=== PATIENT | male | born 1935 | race Caucasian/White ===

== ENCOUNTER 2016-11-07 12:25 | Emergency (ER) | payer MEDICARE, OTHER ==
[~2016-11-07] VITALS: Ht 172.7 cm; Wt 92.3 kg
[~2016-11-07 12:25] MED LIST: AMLO5TAB96 PO; APIX5TAB PO; ASPI81TA82 PO; ATOR10 PO; ENAL20TA81 PO; GLIM1 PO; ISOS30TA17 PO; MAXZ25 PO; PIOG30 PO; POTA-267 PO; SITA50 PO; VITA-13 PO
[2016-11-07 12:42] VITALS: BP 146/73; PULSE 62; RESP 18; TEMP 98.2; O2SAT 96
[2016-11-07] MEDS ORDERED: TRIA37.5 PO (13:25)
[2016-11-07] MEDS ORDERED: ATOR20TA15 PO (13:25)
[2016-11-07] MEDS ORDERED: POTA-243 PO (13:25)
[2016-11-07] MEDS ORDERED: APIX5TAB PO (13:25)
[2016-11-07] MEDS ORDERED: PIOG30TA4 PO (13:25)
[2016-11-07] MEDS ORDERED: ENAL20TA PO (13:25)
[2016-11-07] MEDS ORDERED: ASPI81CH CHEW (13:25)
[2016-11-07] MEDS ORDERED: SITA50 PO (13:25)
[2016-11-07] MEDS ORDERED: GLIM1TAB PO (13:25)
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
--- NOTE | 2016-11-07 14:15 | RADHPO ---
EXAM DATE/TIME: 11/07/2016 13:56 [facility] COMPARISON: No previous studies available for comparison. INDICATIONS : Right hip pain; fell 4 days ago. MEDICAL HISTORY : None. SURGICAL HISTORY : Inguinal hernia repair. ENCOUNTER: Initial ACUITY: 4 - 6 days PAIN SCORE: 5/10 LOCATION: Right hip FINDINGS: No definite fractures, or dislocations are identified. No definite lytic or sclerotic lesion is seen . The joint space is well maintained. Chronic atherosclerotic calcifications are seen involving the visualized arteries. CONCLUSION: No definite fracture is seen for techniqueKenny Acevedo MD on November 07, 2016 at 14:13 Board Certified Radiologist. This report was verified electronically.
--- NOTE | 2016-11-07 14:35 | RADHPO ---
EXAM DATE/TIME: 11/07/2016 13:55 [facility] COMPARISON: No previous studies available for comparison. INDICATIONS : Low back pain; fell 4 days ago. MEDICAL HISTORY : Hypertension. Diabetes mellitus type II. Afib. Coronary artery disease. SURGICAL HISTORY : Cardiac cath. Coronary stent. ENCOUNTER: Initial ACUITY: 4 - 6 days PAIN SCORE: 7/10 LOCATION: Low back. FINDINGS: No appreciable compression deformities, spondylolisthesis, or spondylolysis is seen. Slight degenera tive changes are seen within the disc space and facets. Chronic atherosclerotic calcifications are se en without any definite aneurysmal dilatations for technique. There is moderate amount of stool throu ghout the colon. CONCLUSION: Chronic changes. KKenny Acevedo MD on November 07, 2016 at 14:19 Board Certified Radiologist. This report was verified electronically.
[2016-11-07] MEDS ORDERED: TRAM50TA PO (14:53)
== END 2016-11-07 15:04 | disposition home or self-care (01) ==
LOC: PHEFT 12:25
DX: M54.5 Low back pain (principal); I48.91 Unspecified atrial fibrillation; I25.10 Atherosclerotic heart disease of native coronary artery without angina pectoris; I10 Essential (primary) hypertension; E11.9 Type 2 diabetes mellitus without complications; E78.00 Pure hypercholesterolemia, unspecified; N40.0 Benign prostatic hyperplasia without lower urinary tract symptoms; Z79.01 Long term (current) use of anticoagulants; Z95.5 Presence of coronary angioplasty implant and graft; W01.0XXA Fall on same level from slipping, tripping and stumbling without subsequent striking against object, initial encounter; Y93.19 Activity, other involving water and watercraft; Y92.9 Unspecified place or not applicable; Y99.8 Other external cause status
CPT/HCPCS: 72110; 73502; 99283

== ENCOUNTER 2017-04-14 11:18 | Emergency (ER) | payer MEDICARE, OTHER ==
[~2017-04-14] VITALS: Ht 172.7 cm; Wt 94.0 kg
[~2017-04-14 11:18] MED LIST changes: -AMLO5TAB96 PO; +ASPI81CH CHEW; -ASPI81TA82 PO; -ATOR10 PO; +ATOR20TA15 PO; +ENAL20TA PO; -ENAL20TA81 PO; -GLIM1 PO; +GLIM1TAB PO; -ISOS30TA17 PO; -MAXZ25 PO; -PIOG30 PO; +PIOG30TA4 PO; +POTA-243 PO; -POTA-267 PO; +TRAM50TA PO; +TRIA37.5 PO; -VITA-13 PO
[2017-04-14 11:28] VITALS: BP 144/69; PULSE 68; RESP 16; TEMP 98.4; O2SAT 97
[2017-04-14] MEDS ORDERED: AMLO10TA2 PO (11:37)
[2017-04-14] MEDS ORDERED: VITA100036 PO (11:37)
[2017-04-14] MEDS ORDERED: ENAL20TA PO (11:37)
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
--- NOTE | 2017-04-14 13:29 | RADRPT ---
EXAM DATE/TIME: 04/14/2017 12:03 [facility] COMPARISON: HIP RIGHT (AP&LAT 2/3VWS) W AP PELVIS, November 07, 2016, 13:56. INDICATIONS : Cough. MEDICAL HISTORY : Hypertension. Diabetes mellitus type II. Hypercholesterolemia. afib SURGICAL HISTORY : Coronary artery stent. ENCOUNTER: Initial ACUITY: 1 week PAIN SCORE: 0/10 LOCATION: Bilateral chest FINDINGS: PA and lateral views of the chest demonstrate the lungs to be symmetrically aerated without evidence of mass, infiltrate or effusion. The cardiomediastinal contours are unremarkable. Osseous structure s are intact. CONCLUSION: 1. No acute cardiopulmonary findings. Angel Luis Diaz MD on April 14, 2017 at 13:26 Board Certified Radiologist. This report was verified electronically.
[2017-04-14] MEDS ORDERED: AZIT250T3 PO (13:33)
[2017-04-14] MEDS ORDERED: BENZ100 PO (13:33)
== END 2017-04-14 13:43 | disposition home or self-care (01) ==
LOC: PHEFT 11:18
DX: J40 Bronchitis, not specified as acute or chronic (principal); I48.91 Unspecified atrial fibrillation; E78.00 Pure hypercholesterolemia, unspecified; I25.10 Atherosclerotic heart disease of native coronary artery without angina pectoris; E11.9 Type 2 diabetes mellitus without complications; I10 Essential (primary) hypertension; N40.0 Benign prostatic hyperplasia without lower urinary tract symptoms; Z95.5 Presence of coronary angioplasty implant and graft
CPT/HCPCS: 71020; 99283

== ENCOUNTER 2017-05-17 14:57 | Emergency (ER) | payer MEDICARE, OTHER ==
[~2017-05-17] VITALS: Ht 172.7 cm; Wt 96.0 kg
[~2017-05-17 14:57] MED LIST changes: +AMLO10TA2 PO; +AZIT250T3 PO; +BENZ100 PO; -TRAM50TA PO; +VITA100036 PO
[2017-05-17 15:06] VITALS: BP 152/68; PULSE 67; RESP 16; TEMP 98.1; O2SAT 94
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
== END 2017-05-17 16:21 | disposition home or self-care (01) ==
LOC: PHEFT 14:57
DX: M25.551 Pain in right hip (principal); I48.91 Unspecified atrial fibrillation; I10 Essential (primary) hypertension; E78.00 Pure hypercholesterolemia, unspecified; I25.10 Atherosclerotic heart disease of native coronary artery without angina pectoris; E11.9 Type 2 diabetes mellitus without complications; Z87.19 Personal history of other diseases of the digestive system; Z79.82 Long term (current) use of aspirin; Z79.899 Other long term (current) drug therapy
CPT/HCPCS: 99282

== ENCOUNTER → 2017-09-02 | Outpatient (CLI) | payer MEDICARE, OTHER ==
[~2017-09-02] MED LIST changes: +AMIO200T PO; +ASPI-516 CHEW; -ASPI81CH CHEW; -AZIT250T3 PO; -BENZ100 PO; +CHOL10008 PO; +KLOR10TA PO; +METO25TA3 PO; +OCUVTAB4 PO; -POTA-243 PO; -VITA100036 PO
--- NOTE | 2017-09-08 10:15 | RSPPFT ---
DATE OF PROCEDURE: 09/02/17 COMMENTS: VOLUMES DYNAMIC: FVC and FEV1 mildly reduced. STATIC: TLC, FRC mildly reduced; RV low normal. FLOWS: FEV1% normal; FEF 25-75 moderately reduced. DIFFUSION: Moderately reduced. FLOW VOLUME LOOP: Restrictive configuration with terminal airflow obstruction. IMPRESSION: Mild restrictive ventilatory defect with terminal airflow obstruction and increased airways resistance. There is a moderate reduction in diffusion. There is some improvement post-bronchodilator.
== END ==
LOC: PHRSP 07:39
PROVIDERS: ATTEND Internal Medicine
DX: J44.9 Chronic obstructive pulmonary disease, unspecified (principal)
CPT/HCPCS: 94060; 94618; 94726; 94729

== ENCOUNTER 2017-09-10 09:26 | Emergency (ER) | payer MEDICARE, OTHER ==
[~2017-09-10] VITALS: Ht 172.7 cm; Wt 94.3 kg
[~2017-09-10 09:26] MED LIST changes: -AMIO200T PO; -METO25TA3 PO; -OCUVTAB4 PO
[2017-09-10 09:28] VITALS: BP 160/82; PULSE 55; RESP 16; TEMP 97.9; O2SAT 96
[2017-09-10] MEDS ORDERED: METO25TA3 PO (09:41)
[2017-09-10] MEDS ORDERED: AMIO200T PO (09:41)
[2017-09-10] MEDS ORDERED: OCUVTAB4 PO (09:41)
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
--- NOTE | 2017-09-10 10:38 | RADRPT ---
EXAM DATE/TIME: 09/10/2017 10:17 [facility] COMPARISON: No previous studies available for comparison. INDICATIONS : Left 4th toe pain & swelling after stubbing it on a car tire. MEDICAL HISTORY : Hypercholesterolemia. Hypertension Diabetes mellitus type II. A-fib. CAD. Ulcer. Diverticulitis. SURGICAL HISTORY : Inguinal hernia repair. Cardiac cath w/ stent placement. Left eye surgery. Left 3rd finger. ENCOUNTER: Initial ACUITY: 2 days PAIN SCORE: 6/10 LOCATION: Left 4th toe FINDINGS: Examination reveals a minimally displaced transverse fracture involving the proximal metaphysis of th e fourth toe proximal phalanx. There also appears to be some extension contracture of the toe with sl ight lateral subluxation. CONCLUSION: Fourth toe proximal phalangeal fracture with minimal displacement Duglas Bone MD on September 10, 2017 at 10:35 Board Certified Radiologist. This report was verified electronically.
== END 2017-09-10 11:01 | disposition home or self-care (01) ==
LOC: PHEFT 09:26
DX: S92.512A Displaced fracture of proximal phalanx of left lesser toe(s), initial encounter for closed fracture (principal); I48.91 Unspecified atrial fibrillation; I10 Essential (primary) hypertension; E11.9 Type 2 diabetes mellitus without complications; E78.00 Pure hypercholesterolemia, unspecified; I25.10 Atherosclerotic heart disease of native coronary artery without angina pectoris; X58.XXXA Exposure to other specified factors, initial encounter; Z95.5 Presence of coronary angioplasty implant and graft; Z79.82 Long term (current) use of aspirin; Z79.01 Long term (current) use of anticoagulants; Z85.828 Personal history of other malignant neoplasm of skin; Z88.7 Allergy status to serum and vaccine
CPT/HCPCS: 73660; 99283; L3260

== ENCOUNTER 2017-09-13 08:25 | Inpatient (IN) | payer MEDICARE, OTHER ==
[2017-09-13] VITALS (9 sets, daily range): BP systolic 123–189; BP diastolic 77–86; PULSE 48–62; RESP 18–20; TEMP 96.1–97.8; O2SAT 95–97
[~2017-09-13] VITALS: Ht 172.7 cm; Wt 92.6 kg
[~2017-09-13 08:25] MED LIST changes: +AMIO200T PO; +METO25TA3 PO; +OCUVTAB4 PO
[2017-09-13] MEDS ORDERED: ASPIRIN 325 MG TAB PO ONE (09:00)
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
[2017-09-13 09:12] LABS: AUTOMATED NEUTROPHIL # 8.1 TH/MM3 (1.8-7.7); BASOPHIL # 0.2 TH/MM3 (0-0.2); BASOPHIL % 1.7 % (0.0-2.0); EOSINOPHIL # 0.5 TH/MM3 (0-0.4); EOSINOPHIL % 3.5 % (0.0-4.0); HEMATOCRIT 37.9 % (39.0-51.0); HEMOGLOBIN 12.7 GM/DL (13.0-17.0); LYMPH % 33.7 % (9.0-44.0); LYMPHOCYTE # 4.9 TH/MM3 (1.0-4.8); MEAN CELL VOLUME 87.2 FL (80.0-100.0); MEAN CORPUSCULAR HEMOGLOBIN 29.2 PG (27.0-34.0); MEAN CORPUSCULAR HGB CONC 33.4 % (32.0-36.0); MEAN PLATELET VOLUME 8.4 FL (7.0-11.0); MONO % 6.3 % (0.0-8.0); MONOCYTE # 0.9 TH/MM3 (0-0.9); NEUT % 54.8 % (16.0-70.0); PLATELET COUNT 356 TH/MM3 (150-450); RED BLOOD COUNT 4.34 MIL/MM3 (4.50-5.90); RED CELL DISTRIBUTION WIDTH 14.2 % (11.6-17.2); WHITE BLOOD COUNT 14.6 TH/MM3 (4.0-11.0)
[2017-09-13 09:22] LABS: PROTHROMBIN TIME - PATIENT 10.4 SEC (9.8-11.6)
[2017-09-13 09:35] LABS: BILIRUBIN, URINE NEG (NEG); BLOOD, URINE SMALL (NEG); GLUCOSE,URINE 100 mg/dL (NEG); KETONE, URINE NEG (NEG); NITRITE,URINE NEG (NEG); PH, URINE 6.5 (5.0-8.5); URINE LEUKOCYTE ESTERASE NEG (NEG)
[2017-09-13 09:47] LABS: BICARBONATE 29.5 MEQ/L (21.0-32.0); BLOOD UREA NITROGEN 16 MG/DL (7-18)
[2017-09-13 09:48] LABS: SQUAMOUS EPITHELIAL CELL URINE 0-5 /hpf (0-5); URINE COLOR YELLOW (YELLW/STRAW)
[2017-09-13 09:48] LABS: GLUCOSE,RANDOM 199 MG/DL (74-106)
[2017-09-13 09:52] LABS: ALT (GPT) 22 U/L (12-78); AST (GOT) 21 U/L (15-37); GLOMERULAR FILTRATION RATE 64 ML/MIN (>89)
[2017-09-13 09:53] LABS: TOTAL BILIRUBIN ADULT 0.6 MG/DL (0.2-1.0)
[2017-09-13 09:54] LABS: ALKALINE PHOSPHATASE 115 U/L (45-117)
[2017-09-13 09:56] LABS: CHLORIDE 102 MEQ/L (98-107); SODIUM (NA) 140 MEQ/L (136-145)
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
[2017-09-13] MEDS ORDERED: POTASSIUM CHLORIDE 20 MEQ CONTROLLED RELEASE TAB PO ONE (10:45)
[2017-09-13] MEDS ORDERED: Vancomycin Consult Pharmacy 1 EA OTHER SCH (11:45)
[2017-09-13] MEDS: SODIUM CHLOR 0.9% 1000 ML INJ 1,000 ML IV SCH (12:00)
[2017-09-13] MEDS ORDERED: DEXTROSE 50% IN WATER 50 ML VIAL(D50) IV PUSH PRN (12:15)
[2017-09-13] MEDS ORDERED: GLUCAGON 1 MG/ML VIAL OTHER PRN ×2 (12:15)
[2017-09-13] MEDS ORDERED: ENALAPRILAT 1.25 MG/ML VIAL IV PUSH PRN (12:15)
--- NOTE | 2017-09-13 12:45 | EKG ---
Date Performed: 09/13/2017 Time Performed: 09:12:51 PTAGE: 81 years EKG: SINUS BRADYCARDIA WITH FIRST DEGREE AV BLOCK NONSPECIFIC T-WAVE ABNORMALITY ABNORMAL ECG PREVIOUS TRACING : 08/16/2015 06.13 Compared to previous tracing, nonspecific T wave abnormalit y is now present. DOCTOR: Keon Loco Interpretating Date/Time 09/13/2017 12:44:25
[2017-09-13] MEDS ORDERED: VANCOMYCIN INJ 1,500 MG in SODIUM CHLORID 0.9% 500 ML INJ 500 ML IV ONE (13:00)
[2017-09-13] MEDS ORDERED: AMPICILLIN INJ 1,000 MG in SODIUM CHLORIDE 0.9% INJ 100 ML IV SCH (13:00)
[2017-09-13 13:44] LABS: CHLORIDE 101 MEQ/L (98-107); SODIUM (NA) 139 MEQ/L (136-145)
[2017-09-13 13:46] LABS: CALCIUM 9.1 MG/DL (8.5-10.1)
[2017-09-13 13:47] LABS: BICARBONATE 30.6 MEQ/L (21.0-32.0); BLOOD UREA NITROGEN 14 MG/DL (7-18); GLUCOSE,RANDOM 190 MG/DL (74-106)
[2017-09-13 13:50] LABS: GLOMERULAR FILTRATION RATE 72 ML/MIN (>89)
[2017-09-13 13:55] LABS: TROPONIN I LESS THAN 0.02 NG/ML (0.02-0.05)
--- NOTE | 2017-09-13 15:48 | RADRPT ---
EXAM DATE/TIME: 09/13/2017 14:56 [facility] COMPARISON: No previous studies available for comparison. INDICATIONS : Cerebrovascular accident. MEDICAL HISTORY : Hypercholesterolemia. Diverticulitis. Benign prostatic hyperplasia, (BPH) Coronary artery disease. An ticoagulant therapy. Afib. Hypertension. Ulcer. Inguinal hernia. Diabetes. Skin cancer. Blood tranfus ion. SURGICAL HISTORY : Coronary artery stent. Tonsillectomy. Inguinal hernia repair. Facial surgery. Left eye enucleation. C ardioversion. Left finger repair. ENCOUNTER: Initial ACUITY: 1 day PAIN SCORE: 0/10 LOCATION: Bilateral neck PEAK SYSTOLIC VELOCITIES (cm/sec): ICA/CCA RATIO: Right: 3.5 Left: 8.7 ICA: Right: 282 Left: 542 CCA: Right: 80 Left: 63 ECA: Right: 96 Left: 111 VERTEBRAL: Right: 49 antegrade Left: 154 antegrade Elevated flow velocities and ICA/CCA ratios have been found to correlate with increased degrees of vessel stenosis, calculated as percentage of diameter relative to a normal segment of distal ICA/CCA FINDINGS: RIGHT CAROTID: There is moderate atherosclerotic plaquing at the carotid bifurcation. There is elevated velocity in the right internal carotid artery suggestive of a moderate to severe stenosis. There is flow in the e xternal carotid artery. LEFT CAROTID: There is at least moderate atherosclerotic plaquing at the carotid bifurcation. There is elevated tigist ocity in the left internal carotid artery suggestive of a high-grade stenosis. There is flow in the e xternal carotid artery. VERTEBRAL ARTERIES: Antegrade flow is seen in both vertebral arteries. MISCELLANEOUS: None. CONCLUSION: 1. There is atherosclerotic changes involving both carotid artery systems. 2. There appears to be evidence of at least moderate to severe stenosis involving the right internal carotid artery. 3. There appears to be evidence of moderate to severe stenosis involving the left internal carotid ar ladonna. 4. Recommend CTA of the carotids for further evaluation. Rj Elena MD on September 13, 2017 at 15:42 Board Certified Radiologist. This report was verified electronically.
[2017-09-13] MEDS: INSULIN ASPART SUPPLEMENTAL SCALE SQ SCH ×2 (16:58→20:46)
[2017-09-13] MEDS ORDERED: INSULIN ASPART SUPPLEMENTAL SCALE SQ SCH (17:00)
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
--- NOTE | 2017-09-13 18:51 | MB ---
cc: LISANDRO BECKMAN MD DATE OF CONSULTATION 09/13/17 This is an 81-year-old with history of waking up this morning with left hand weakness. He came to the emergency room. He takes Eliquis and aspirin. The Eliquis dose appears to be 5 mg twice a day. He has a history of atrial fibrillation and stenting and he follows with Dr. Neri. The CT head was negative. According to the family at bedside, apparently he had recent carotid ultrasound study showing some probable significant stenosis on the left. Today in the hospital carotid ultrasound was completed when I actually came in to see the patient and the study indicates left more than right carotid disease. NEUROLOGIC EXAM On exam, he is alert, pleasant, oriented. Mentally he appears bright. He has a left eye prosthesis. Right eye moves normally with normal visual wheeler. No facial weakness. He has good strength with the right side. The left side shows moderate weakness, more so distally, involving the fine finger coordination with some difficulty with [id number] testing. There is some probable weakness in the left foot as well. Reflexes were trace responses, plantar response possibly extensor on the left and flexor on the right. LABORATORY DATA Labs reviewed. ASSESSMENT Left upper extremity weakness and probably some left leg weakness as well. Suspect small ischemic stroke. History of atrial fibrillation on aspirin and Eliquis. History of what appears to be significant bilateral carotid artery disease. I would continue with the plan for the CT angio study. Continue Eliquis 5 mg twice a day and aspirin 81 mg a day for the time being. He apparently had recent cardioversion, which was reportedly successful for the atrial fibrillation. I will follow the neurological course. Thank you for asking us to assist in his care. Also, check a lipid profile. MD SKIP Sam/ /4:31 PM /6:42 PM
[2017-09-13] MEDS ORDERED: IOHEXOL 350 MG/ML 10 ML VIAL (for RAD DIAG) IVCONTRAST ONE (20:20)
[2017-09-13] MEDS: ENALAPRIL MALEATE 10 MG TAB PO SCH (20:39)
[2017-09-13] MEDS: AMIODARONE 200 MG TAB PO SCH (20:39)
[2017-09-13] MEDS: METOPROLOL TARTRATE 25 MG TAB PO SCH (20:39)
[2017-09-13] MEDS: APIXABAN 5 MG TABLET PO SCH (20:39)
[2017-09-13] MEDS: ATORVASTATIN 20 MG TAB PO SCH (20:40)
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
[2017-09-14] VITALS: BP 197/85; PULSE 55; RESP 20; TEMP 96.3; O2SAT 98
[2017-09-14] MEDS: SODIUM CHLOR 0.9% 1000 ML INJ 1,000 ML IV SCH ×2 (03:50→16:36)
[2017-09-14 04:00] VITALS: BP 186/84; PULSE 56; RESP 18; TEMP 96; O2SAT 95
[2017-09-14 08:00] VITALS: BP 182/86; PULSE 60; PULSE 63; RESP 18; TEMP 97; O2SAT 97
[2017-09-14] MEDS: INSULIN ASPART SUPPLEMENTAL SCALE SQ SCH ×4 (08:00→21:41)
[2017-09-14] MEDS: ENALAPRIL MALEATE 10 MG TAB PO SCH ×2 (08:08→21:37)
[2017-09-14] MEDS: amLODIPine BESYLATE 5 MG TAB PO SCH (08:09)
[2017-09-14] MEDS: APIXABAN 5 MG TABLET PO SCH ×2 (08:09→21:37)
[2017-09-14] MEDS: AMIODARONE 200 MG TAB PO SCH ×2 (08:09→21:38)
[2017-09-14] MEDS: ASPIRIN 81 MG CHEW TAB CHEW SCH (08:10)
[2017-09-14] MEDS: METOPROLOL TARTRATE 25 MG TAB PO SCH ×2 (09:00→21:38)
[2017-09-14 09:56] LABS: CHOLESTEROL/ HDL RATIO 2.91 RATIO; HDL CHOLESTEROL 51.2 MG/DL (40.0-60.0)
[2017-09-14 12:00] VITALS: BP 142/86; PULSE 72; RESP 18; TEMP 97.2; O2SAT 97
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
[2017-09-14 16:00] VITALS: BP 163/74; PULSE 59; RESP 18; TEMP 97.7; O2SAT 97
--- NOTE | 2017-09-14 17:45 | ECHRPT ---
Indication: CONCLUSIONS The left ventricular systolic function is low normal with an estimated ejection fraction in the rang e of 50- 55%. Wall thickness is normal. Normal left ventricular size. Mild mitral valve regurgitation. There is trace tricuspid valve regurgitation. The estimated pulmonary arterial pressure is 24.3 mmHg. BP: / HR: Rhythm: Sinus MEASUREMENTS (Male / Female) Normal Values Technical Quality:Fair 2D ECHO LV Diastolic Diameter PLAX 4.9 cm 4.2 - 5.9 / 3.9 - 5.3 cm LV Systolic Diameter PLAX 3.8 cm IVS Diastolic Thickness 1.1 cm 0.6 - 1.0 / 0.6 - 0.9 cm LVPW Diastolic Thickness 1.1 cm 0.6 - 1.0 / 0.6 - 0.9 cm LV Relative Wall Thickness 0.5 LVOT Diameter 2.0 cm M-MODE Aortic Root Diameter MM 2.5 cm LA Systolic Diameter MM 4.2 cm LA Ao Ratio MM 1.7 AV Cusp Separation MM 1.7 cm DOPPLER AV Peak Velocity 110.0 cm/s AV Peak Gradient 4.8 mmHg LVOT Peak Velocity 75.0 cm/s LVOT Peak Gradient 2.3 mmHg AV Area Cont Eq pk 2.1 cm MR Peak Velocity 257.0 cm/s MR Peak Gradient 26.4 mmHg Mitral E Point Velocity 102.0 cm/s Mitral A Point Velocity 57.8 cm/s Mitral E to A Ratio 1.8 TR Peak Velocity 189.0 cm/s TR Peak Gradient 14.3 mmHg Right Atrial Pressure 10.0 mmHg Pulmonary Artery Systolic Pressu 24.3 mmHg Right Ventricular Systolic Press 24.3 mmHg PV Peak Velocity 115.0 cm/s PV Peak Gradient 5.3 mmHg FINDINGS LEFT VENTRICLE The left ventricular systolic function is low normal with an estimated ejection fraction in the rang e of 50- 55%. Wall thickness is normal. Normal left ventricular size. RIGHT VENTRICLE Normal right ventricular size and systolic function. LEFT ATRIUM The left atrial size is normal. RIGHT ATRIUM The right atrial size is normal. ATRIAL SEPTUM Normal atrial septal thickness without atrial level shunting by limited color doppler interrogation. AORTA The aortic root and proximal ascending aorta are normal in size on limited imaging. MITRAL VALVE Mild mitral valve regurgitation. AORTIC VALVE Trileaflet aortic valve. No aortic valve stenosis or regurgitation. TRICUSPID VALVE There is trace tricuspid valve regurgitation. The estimated pulmonary arterial pressure is 24.3 mmHg. PULMONARY VALVE No pulmonary valve regurgitation or stenosis. VESSELS The inferior vena cava is normal in size. PERICARDIUM No pericardial effusion. James Sutton MD, FACC (Electronically Signed) Final Date:14 September 2017 17:44
[2017-09-14 20:00] VITALS: BP 194/81; PULSE 53; PULSE 55; RESP 18; TEMP 96.1; O2SAT 93; O2SAT 95
[2017-09-14] MEDS: ATORVASTATIN 20 MG TAB PO SCH (21:38)
[2017-09-15] VITALS: BP 164/80; PULSE 53; RESP 18; TEMP 97.6; O2SAT 93
[2017-09-15 04:00] VITALS: BP 179/80; PULSE 50; RESP 43; TEMP 96.8; O2SAT 97
[2017-09-15 08:00] VITALS: BP 160/73; PULSE 51; RESP 18; TEMP 96.1; O2SAT 97
[2017-09-15] MEDS: INSULIN ASPART SUPPLEMENTAL SCALE SQ SCH ×2 (08:00→14:20)
[2017-09-15 08:01] VITALS: O2SAT 95
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
[2017-09-15] MEDS: AMIODARONE 200 MG TAB PO SCH (09:40)
[2017-09-15] MEDS: ASPIRIN 81 MG CHEW TAB CHEW SCH (09:41)
[2017-09-15] MEDS: ENALAPRIL MALEATE 10 MG TAB PO SCH (09:41)
[2017-09-15] MEDS: amLODIPine BESYLATE 5 MG TAB PO SCH (09:41)
[2017-09-15] MEDS: APIXABAN 5 MG TABLET PO SCH (09:41)
[2017-09-15] MEDS: METOPROLOL TARTRATE 25 MG TAB PO SCH (09:41)
[2017-09-15 12:00] VITALS: BP 177/83; PULSE 50; RESP 18; TEMP 97.5; O2SAT 95
--- NOTE | 2017-09-15 14:40 | HM ---
Date Performed: 09/13/2017 Time Performed: 17:10:00 HOOKUP DATE: 09/13/17 05:10:00 PM Sat ANALYSIS START TIME: 09/13/2017 5:15:00 PM ANALYSIS END TIME: 09/14/2017 5:18:59 PM PATIENT AGE: 81 PATIENT HEIGHT: 68 PATIENT WEIGHT: 207 DRUG LIST PATIENT DIAGNOSIS: weakness TEST NARRATIVE: The patient's average heart rate was 56 BPM. No episodes of tachycardia wer e noted. Heart rates less than 50 BPM were noted 38% of the time. 2 pauses exceeding 2.0 second s were noted. The longest pause of 2.0 seconds occurred at 03:43:29 AM Sun. 5299 ventricular ecto pics, which represented 7% of the total beat count, were noted. The highest ventricular ectopic freq uency occurred from 09:00 PM to 10:00 PM Sat. During this time 458 VE(s) occurred. Ventricular ecto pics were observed as 4602 isolated beat(s), as 284 couplet(s) and as 41 run(s). Some of the ventric ular beats occurred in bigeminal cycles. 815 supraventricular ectopics, which represented 1% of t he total beat count, were noted. The highest supraventricular ectopic frequency occurred from 10:00 PM to 11:00 PM Sat. During this time 76 SVE(s) occurred. No episodes of ST depression (defined a s -1.0 mm or more) were noted in channel 1. No episodes of ST depression (defined as -1.0 mm or more ) were noted in channel 2. No episodes of ST depression (defined as -1.0 mm or more) were noted in c debinel 3. TEST INTERPRETATION: Agree with the dictation. Significantly abnormal holter monitor with two pa uses and a high rate of ventricular ectopy including a four beat run. Some of which are multifocal. C linical correlation is strongly recommended. Signed by : Hayden Rodrigez
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
--- NOTE | 2017-09-15 16:07 | HHI.FF ---
Face to Face Verification Diagnosis: (1) Carotid artery disease (2) Left arm weakness Physical Therapy Order: Evaluate and Treat, Improve ambulation, Strength and gait training Occupational Therapy Order: Evaluate and Treat, Improve ADL, Gross motor coordination, Fine motor coordination Home Health Nursing Order: Medical education Signs/symptoms of disease process Nursing assessment with vital signs Home Health Aide Order: To Assist In: Bathing and personal care, or director and meal prep I have seen patient Duglas Rivera on 09/15/17. My clinical findings support the need for the requested home health care services because: Ltd mobility - disease progression I certify that my clinical findings support that this patient is homebound because: Unsteady gait/balance Everett Bonilla DO Sep 15, 2017 16:07
[2017-09-15] MEDS ORDERED: AMIO200T PO (16:12)
[2017-09-15] MEDS ORDERED: APIX5TAB PO (16:12)
[2017-09-15] MEDS ORDERED: METO25TA3 PO (16:12)
[2017-09-15] MEDS ORDERED: ASPI-516 CHEW (16:12)
[2017-09-15] MEDS ORDERED: ATOR20TA15 PO (16:12)
[2017-09-15] MEDS ORDERED: ENAL20TA PO (16:12)
[2017-09-15] MEDS ORDERED: KLOR10TA PO (16:12)
[2017-09-15] MEDS ORDERED: AMLO10TA2 PO (16:12)
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
== END 2017-09-15 17:35 | disposition home health service (06) | DRG 65 ==
LOC: PHED 08:25 → PHEDA 11:34 → PH3A 12:14 → OBSVTOIN 09-14 10:08
PROVIDERS: ADMIT Hospitalist; ATTEND Hospitalist
DX: I63.9 Cerebral infarction, unspecified (principal); G81.94 Hemiplegia, unspecified affecting left nondominant side; I48.91 Unspecified atrial fibrillation; E11.9 Type 2 diabetes mellitus without complications; E78.5 Hyperlipidemia, unspecified; I10 Essential (primary) hypertension; I25.10 Atherosclerotic heart disease of native coronary artery without angina pectoris; I65.22 Occlusion and stenosis of left carotid artery; N40.0 Benign prostatic hyperplasia without lower urinary tract symptoms; R29.701 NIHSS score 1; Z79.01 Long term (current) use of anticoagulants; Z79.82 Long term (current) use of aspirin; Z79.84 Long term (current) use of oral hypoglycemic drugs; Z85.828 Personal history of other malignant neoplasm of skin; Z87.11 Personal history of peptic ulcer disease; Z95.5 Presence of coronary angioplasty implant and graft; Z97.0 Presence of artificial eye
CPT/HCPCS: 70450; 70498; 72125; 80048; 80053; 80061; 81001; 82550; 82948; 84484; 85025; 85384; 85610; 85730; 93005; 93225; 93226; 93306; 93880; 96360; 96361; 96372; G0378; G8987-GP; G8988-GP; G8996-GN; G8997-GN; G8998-GN; J1815; J7030; Q9967

== ENCOUNTER → 2017-10-01 | Outpatient (CLI) | payer MEDICARE, OTHER ==
[~2017-10-01] MED LIST changes: +ECASA81 PO
[2017-10-01 12:27] LABS: HEMATOCRIT 36.8 % (39.0-51.0); HEMOGLOBIN 12.4 GM/DL (13.0-17.0); MEAN CELL VOLUME 87.9 FL (80.0-100.0); MEAN CORPUSCULAR HEMOGLOBIN 29.5 PG (27.0-34.0); MEAN CORPUSCULAR HGB CONC 33.6 % (32.0-36.0); MEAN PLATELET VOLUME 8.2 FL (7.0-11.0); PLATELET COUNT 332 TH/MM3 (150-450); RED BLOOD COUNT 4.18 MIL/MM3 (4.50-5.90); RED CELL DISTRIBUTION WIDTH 14.9 % (11.6-17.2); WHITE BLOOD COUNT 14.9 TH/MM3 (4.0-11.0)
[2017-10-01 12:37] LABS: PROTHROMBIN TIME - PATIENT 10.3 SEC (9.8-11.6)
[2017-10-01 12:41] LABS: BACTERIA, URINE RARE /hpf; BILIRUBIN, URINE NEG (NEG); BLOOD, URINE SMALL (NEG); GLUCOSE,URINE 1000 mg/dL (NEG); KETONE, URINE NEG (NEG); NITRITE,URINE NEG (NEG); URINE COLOR YELLOW (YELLW/STRAW); URINE LEUKOCYTE ESTERASE NEG (NEG)
[2017-10-01 12:48] LABS: BICARBONATE 32.8 MEQ/L (21.0-32.0); CALCIUM 8.9 MG/DL (8.5-10.1); CREATININE 1.33 MG/DL (0.60-1.30)
== END ==
LOC: CPRE 11:35
PROVIDERS: ATTEND Surgery
DX: Z01.812 Encounter for preprocedural laboratory examination (principal); I65.23 Occlusion and stenosis of bilateral carotid arteries
CPT/HCPCS: 36415; 80048; 81001; 85027; 85610; 85730

== ENCOUNTER 2017-10-08 05:31 | Inpatient (IN) | payer MEDICARE, OTHER ==
[~2017-10-08] VITALS: Ht 172.7 cm; Wt 94.5 kg
[~2017-10-08 05:31] MED LIST changes: -ASPI-516 CHEW
[2017-10-08] MEDS ORDERED: METOPROLOL TARTRATE 25 MG TAB PO PRN (06:00)
[2017-10-08] MEDS ORDERED: POVIDONE IODINE 5% (ANTISEPSIS KIT) 4 APPLICATIONS EACH NARE PRN (06:00)
[2017-10-08] MEDS ORDERED: LACTATED RINGER'S 1000 ML IV PRN (06:00)
[2017-10-08] MEDS ORDERED: CHLORHEXIDINE GLUCONATE 2 % 1 PACK (2 CLOTHS) TOPICAL PRN (06:00)
[2017-10-08] MEDS ORDERED: SODIUM CHLORID 0.9% 500 ML IV PRN (06:00)
[2017-10-08] MEDS ORDERED: THROMBIN (TOPICAL) 20,000 UNIT SPRAY KIT ONE (06:55)
[2017-10-08] MEDS ORDERED: PROTAMINE SULFATE 50 MG/5 ML VIAL ONE ×2 (06:55→07:06)
[2017-10-08] MEDS ORDERED: HEPARIN SODIUM - IV 10,000 UNITS/10 ML VIAL ONE ×2 (06:55→07:06)
[2017-10-08] MEDS ORDERED: HEPARIN-NS/PF INJ 500 ML ONE (06:55)
[2017-10-08] MEDS ORDERED: ceFAZolin 2 GM PREMIX 50 ML ONE (06:55)
[2017-10-08] MEDS ORDERED: BUPIVACAINE HCL PF 0.5% 30 ML VIAL ONE (06:55)
--- NOTE | 2017-10-08 07:04 | PD.VS.PN ---
Pre-operative Note Pre-operative diagnosis: High grade LEFT carotid stenosis, asymptomatic Planned procedure: LEFT CEA Interval History: Pt has been feeling well, has recovered from RIGHT CVA and presents for elective LEFT CEA. Labs: Hct 27 dcm235 cr 1.3 INR 1.0 Blood: T&S EKG: no ST changes Imaging: CTA (inpatient [facility]) reviewed - high grade L carotid stenosis R carotid stenosis 40-50% Orders: NPO ancef 2g IV OCTOR Post-operative destination: CVICU Operative site marked: Yes Consent: Informed consent has been obtained from Duglas Rivera. I have explained the procedure in detail and discussed the risks, benefits, and potential complications. All questions have been answered. Patient contact information: Daughter [phone] Shahid Owen MD Oct 08, 2017 07:03
[2017-10-08] MEDS ORDERED: NITROGLYCERIN-D5W 50 MG/250 ML 250 ML ONE (08:58)
[2017-10-08] MEDS ORDERED: ACETAMINOPHEN 1000 MG/100 ML 100 ML IV ONE (08:59)
--- NOTE | 2017-10-08 09:56 | HHI.PR ---
cc: Dari Neri MD; Shahid Owen MD Immediate Post Op Note Procedure Date: Oct 08, 2017 Pre Op Diagnosis: Asymptomatic high grade LEFT carotid stenosis Post Op Diagnosis: Asymptomatic high grade LEFT carotid stenosis Surgeon: Shahid Owen Maintenance Craftsman(s): Clare Chaves Procedure: L CEA Findings: high grade plaque at carotid bifurcation no intraoperative EEG changes successful CEA awoke neurologically intact Complications: none Specimen(s) removed: plaque not for pathology Estimated blood loss: 100mL Anesthesia: General Drains: None Fluids: 1300mL IVF Urinary Output (mLs): 850 Patient to: CVICU Patient Condition: Good Implant/Devices: SEE IMPLANT LOG (if applicable) Date/Time of Procedure: SEE SURGICAL CARE RECORD Shahid Owen MD Oct 08, 2017 09:56
[2017-10-08] MEDS ORDERED: BISACODYL 10 MG SUPP RECTAL PRN (10:00)
[2017-10-08] MEDS ORDERED: SENNOSIDES 8.6 MG TAB PO PRN (10:00)
[2017-10-08] MEDS ORDERED: MAGNESIUM HYDROXIDE SUSP 30 ML CUP PO PRN (10:00)
[2017-10-08] MEDS ORDERED: ENOXAPARIN SODIUM 40 MG/0.4 ML SYRINGE SQ SCH (10:00)
[2017-10-08] MEDS ORDERED: LACTULOSE SYRUP 20 GM/30 ML CUP PO PRN (10:00)
[2017-10-08] MEDS ORDERED: DO NOT ADM ANY ANTICOAGULANT DRUGS PRN (10:03)
[2017-10-08] MEDS ORDERED: PILL SPLITTER OTHER PRN (10:45)
--- NOTE | 2017-10-08 11:02 | MP ---
cc: Shahid Owen MD DATE OF OPERATION: 10/08/17 PREOPERATIVE DIAGNOSIS: Asymptomatic high-grade left carotid stenosis. POSTOPERATIVE DIAGNOSIS: Asymptomatic high-grade left carotid stenosis. PROCEDURE: Left carotid endarterectomy. ATTENDING SURGEON: Shahid Owen. MULTIPLE COIL WINDER SURGEON: Clare Lancaster. ANESTHESIA: General. INDICATIONS: Mr. Rivera is an 81-year-old gentleman who had a right hemispheric stroke several weeks ago, from which he has completely recovered. He has about a 40% stenosis of his right internal carotid artery. He has a high-grade string sign of his left internal carotid artery, and he is taken to the operating room for asymptomatic carotid endarterectomy. DESCRIPTION OF PROCEDURE: Informed consent was obtained. The patient was taken to the operating room and placed supine on the operating table. An appropriate timeout was taken to ensure the patient's identity, operative site and planned procedure. Administration of 2 grams of Ancef was initiated prior to skin incision and will be discontinued after single preoperative dose. Everyone in the room agreed with timeout, and we proceeded. His left neck was prepped and draped in standard sterile fashion. An incision was made along the anterior border of the sternocleidomastoid and carried down through the subcutaneous tissue with electrocautery. The sternocleidomastoid was retracted posteriorly, and the facial vein was identified and ligated between silk ties. The common carotid artery was identified and encircled with a vessel loop. We then dissected up into the carotid bifurcation, and the external carotid, superior thyroid and distal internal carotid past the tortuosity were all dissected free. The patient was systemically heparinized, and the ACT was confirmed to be greater than 250. Distal, then proximal control of the carotid artery were obtained with profunda clamps, and a longitudinal arteriotomy was made with an 11 blade, extended with Loving scissors. The artery was endarterectomized without difficulty. Throughout the endarterectomy portion, there were no neurological EEG changes. A reasonable endpoint was obtained proximally and distally, and the bovine pericardial patch was sewn on to repair the carotid artery. This was done with running 6-0 Prolene suture. At completion, the clamps were released and hemostasis achieved. There were no neurological changes. There were nice Doppler signals in the internal and external carotid arteries. The heparin reversed with protamine. The wound was infiltrated with Marcaine and closed with 2-0 Polysorb, 3-0 Polysorb and 4-0 Monocryl. Sponge and needle counts were correct at the end of the case. I was present and scrubbed and performed the entire procedure. MD MONIKA Grady/BEATA , 10:42 AM , 11:01 AM HODA
[2017-10-08] MEDS ORDERED: DEXAMETHASONE SOD PHOS 4 MG/ML VIAL IV ONE (12:00)
[2017-10-08] MEDS ORDERED: ePHEDrine/NS 25 MG/5 ML SYRINGE IV ONE (12:00)
[2017-10-08] MEDS ORDERED: LIDOCAINE HCL 1% PF 5 ML SYRINGE OTHER ONE (12:00)
[2017-10-08] MEDS ORDERED: SODIUM CHLORID 0.9% 500 ML INJ 500 ML IV ONE (12:00)
[2017-10-08] MEDS ORDERED: NEOSTIGMINE 5 MG/5 ML SYRINGE IV PUSH ONE (12:00)
[2017-10-08] MEDS ORDERED: ONDANSETRON HCL 4 MG/2 ML VIAL IV ONE (12:00)
[2017-10-08] MEDS ORDERED: NORMOSOL R INJ 1,000 ML IV ONE (12:00)
[2017-10-08] MEDS ORDERED: PROPOFOL 200 MG/20 ML AMP IV ONE (12:00)
[2017-10-08] MEDS ORDERED: PHENYLEPHRINE HCL 10 MG/ML VIAL IV ONE (12:00)
[2017-10-08] MEDS ORDERED: ROCURONIUM INJ 50 MG/5 ML SYRINGE IV PUSH ONE (12:00)
[2017-10-08] MEDS ORDERED: GLYCOPYRROLATE 1 MG/5 ML SYRINGE IV PUSH ONE (12:00)
[2017-10-08] MEDS ORDERED: hydrALAZINE HCL 20 MG/ML VIAL IV ONE ×2 (12:00→18:30)
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
[2017-10-08 17:45] VITALS: BP_SYST 145; BP_SYST 175; BP_DIAS 47; BP_DIAS 72; PULSE 66; RESP 16; TEMP 97.6; O2SAT 97
[2017-10-08 18:45] VITALS: PULSE 67
[2017-10-08] MEDS: SODIUM CHLOR 0.9% 1000 ML INJ 1,000 ML IV SCH (19:00)
[2017-10-08 20:00] VITALS: BP_SYST 147; BP_SYST 156; BP_DIAS 44; BP_DIAS 68; PULSE 64; RESP 20; TEMP 97.5; O2SAT 93
[2017-10-08] MEDS ORDERED: ATORVASTATIN 20 MG TAB PO SCH (21:00)
[2017-10-08] MEDS ORDERED: AMIODARONE 200 MG TAB PO SCH (21:00)
[2017-10-08] MEDS ORDERED: DOCUSATE SODIUM 50 MG/SENNA 8.6 MG TAB PO SCH (21:00)
[2017-10-08] MEDS ORDERED: METOPROLOL TARTRATE 25 MG TAB PO SCH (21:00)
[2017-10-08] MEDS ORDERED: FAMOTIDINE 20 MG TAB PO SCH (21:00)
[2017-10-08] MEDS ORDERED: POTASSIUM CHLORIDE 10 MEQ CONTROLLED RELEASE TAB PO SCH (21:00)
[2017-10-09] VITALS: BP_SYST 147; BP_SYST 148; BP_DIAS 41; BP_DIAS 67; PULSE 65; PULSE 68; RESP 20; TEMP 97.7; O2SAT 96
[2017-10-09 03:30] VITALS: PULSE 55
[2017-10-09 04:00] VITALS: BP_SYST 141; BP_SYST 143; BP_DIAS 45; BP_DIAS 78; PULSE 56; RESP 20; TEMP 97.7; O2SAT 98
[2017-10-09 04:52] LABS: HEMATOCRIT 33.4 % (39.0-51.0); HEMOGLOBIN 11.2 GM/DL (13.0-17.0); MEAN CORPUSCULAR HEMOGLOBIN 29.2 PG (27.0-34.0); MEAN CORPUSCULAR HGB CONC 33.5 % (32.0-36.0); MEAN PLATELET VOLUME 8.6 FL (7.0-11.0); PLATELET COUNT 288 TH/MM3 (150-450); RED BLOOD COUNT 3.84 MIL/MM3 (4.50-5.90); RED CELL DISTRIBUTION WIDTH 15.4 % (11.6-17.2); WHITE BLOOD COUNT 16.8 TH/MM3 (4.0-11.0)
[2017-10-09 05:15] LABS: CALCIUM 7.9 MG/DL (8.5-10.1); CREATININE 1.06 MG/DL (0.60-1.30)
[2017-10-09 07:00] VITALS: BP_SYST 159; BP_SYST 166; BP_DIAS 47; BP_DIAS 74; PULSE 57; PULSE 61; RESP 18; TEMP 97.5; O2SAT 97
[2017-10-09] MEDS: SODIUM CHLOR 0.9% 1000 ML INJ 1,000 ML IV SCH (08:20)
--- NOTE | 2017-10-09 08:29 | PD.VS.PN ---
Subjective POD #: 1 Procedure(s): L CEA Subjective/Hospital Course 81/M S/P L CEA POD 1 Pt w/o complaints of pain or headache Pt Neuro intact w/ Left sided lip droop Pt w/o difficulties swallowing Incision to left side of neck I/C/D w/o swelling Objective Vitals/I&O Date Time Temp Pulse Resp B/P (MAP) Pulse Ox O2 Delivery O2 Flow Rate FiO2 10/09/17 04:00 97.7 56 20 141/78 (99) 98 143/45 (77) 10/09/17 03:30 55 10/09/17 00:00 68 10/09/17 00:00 97.7 65 20 147/67 (93) 96 148/41 (76) 10/08/17 20:00 97.5 64 20 147/68 (94) 93 156/44 (81) 10/08/17 18:45 67 10/08/17 17:45 97.6 66 16 175/47 (89) 97 145/72 (96) 10/08/17 17:45 66 10/08/17 17:00 97.6 56 14 166/72 (103) 96 10/08/17 17:00 97.7 68 16 166/72 (103) 96 10/08/17 16:00 97.6 58 14 143/67 (92) 97 10/08/17 15:00 58 14 156/71 (99) 97 Nasal Cannula 2 10/08/17 14:00 62 14 142/63 (89) 98 Nasal Cannula 2 10/08/17 13:00 58 14 141/66 (91) 97 Nasal Cannula 2 10/08/17 12:00 55 14 141/62 (88) 97 10/08/17 12:00 57 14 145/66 (92) 97 Nasal Cannula 2 10/08/17 11:15 58 14 141/64 (89) 97 Nasal Cannula 2 10/08/17 11:00 56 14 131/60 (83) 95 Nasal Cannula 2 10/08/17 10:45 55 16 136/58 (84) 97 Nasal Cannula 2 10/08/17 10:30 57 16 142/64 (90) 97 Nasal Cannula 2 10/08/17 10:15 55 16 162/52 (88) 97 Nasal Cannula 3 10/08/17 10:03 97.7 57 12 187/80 (115) 96 10/09/17 10/09/17 10/09/17 07:00 15:00 23:00 Intake Total 1622 ml Output Total 1225 ml Balance 397 ml Exam: GENERAL: A&OX3,GCS 15, NAD SKIN: Warm and dry. HEAD: Normocephalic. EYES: No scleral icterus. No injection or drainage. NECK: Supple, trachea midline. No JVD or lymphadenopathy. Incision to left side of neck intact with surgical glue closure/ NO R/D/S CARDIOVASCULAR: Sr on CM RESPIRATORY: No accessory muscle use. MUSCULOSKELETAL: No cyanosis, or edema. Pt denied Headache Pt neuro intact with left sided facial droop Pt w/o swallowing difficulties Laboratory Laboratory Tests Test 10/09/17 04:00 White Blood Count 16.8 Red Blood Count 3.84 Hemoglobin 11.2 Hematocrit 33.4 Mean Corpuscular Volume 87.0 Mean Corpuscular Hemoglobin 29.2 Mean Corpuscular Hemoglobin Concent 33.5 Red Cell Distribution Width 15.4 Platelet Count 288 Mean Platelet Volume 8.6 Blood Urea Nitrogen 23 Creatinine 1.06 Random Glucose 323 Calcium Level 7.9 Sodium Level 137 Potassium Level 3.5 Chloride Level 101 Carbon Dioxide Level 26.0 Anion Gap 10 Estimat Glomerular Filtration Rate 67 Assessment and Plan Assessment: (1) FHx: carotid endarterectomy (2) Carotid artery disease Plan Pt s/p L CEA POD 1 Pt w/o complaints Pt neuro intact Denied headache Plan D/C A cuate D/C Mesfin Discussed post operative care and management w/ pt Questions answered Pt clear for D/C Arranged out pt F/U Lissa De Souza HEAD OF SCIENCE [facility] [phone] Problem Qualifiers (1) Carotid artery disease: Qualified Codes: I77.9 - Disorder of arteries and arterioles, unspecified Lissa De Souza [facility] Oct 09, 2017 08:29
--- NOTE | 2017-10-09 08:40 | PD.VS.DC ---
Discharge Summary Admission Date: Oct 08, 2017 at 05:31 Discharge Date: Oct 09, 2017 Admission Diagnosis: (1) Carotid artery disease Discharge Diagnosis: (1) FHx: carotid endarterectomy ICD Codes: Z84.89 - Family history of other specified conditions (2) Carotid artery disease ICD Codes: I77.9 - Disorder of arteries and arterioles, unspecified Brief History from admission 81/M w/ a hx of asymptomatic High grade LEFT carotid artery stenosis Procedure(s): L CEA Significant Findings GENERAL: A&OX3,GCS 15, NAD SKIN: Warm and dry. HEAD: Normocephalic. EYES: No scleral icterus. No injection or drainage. NECK: Supple, trachea midline. No JVD or lymphadenopathy. Incision to left side of neck intact with surgical glue closure/ NO R/D/S CARDIOVASCULAR: Sr on CM RESPIRATORY: No accessory muscle use. MUSCULOSKELETAL: No cyanosis, or edema. Pt denied Headache Pt neuro intact with left sided facial droop Pt w/o swallowing difficulties Laboratory Tests Test 10/09/17 04:00 White Blood Count 16.8 TH/MM3 (4.0-11.0) Red Blood Count 3.84 MIL/MM3 (4.50-5.90) Hemoglobin 11.2 GM/DL (13.0-17.0) Hematocrit 33.4 % (39.0-51.0) Blood Urea Nitrogen 23 MG/DL (7-18) Random Glucose 323 MG/DL (74-106) Calcium Level 7.9 MG/DL (8.5-10.1) Estimat Glomerular Filtration Rate 67 ML/MIN (>89) Hospital Course: 81/M w/ a hx of asymptomatic High grade LEFT carotid artery stenosis Pt S/P L CEA POD 1 Pt w/o complaints of pain or headache Pt Neuro intact w/ Left sided lip droop Pt w/o difficulties swallowing Incision to left side of neck I/C/D w/o swelling Discussed post operative care and management w/ pt Questions answered Pt clear for D/C Arranged out pt F/U Allergies Coded Allergies Type Severity Reaction Last Updated Verified tetanus toxoid, adsorbed Allergy Mild Respiratory Failure 10/08/17 No 10/07/17 10/07/17 10/08/17 10/08/17 10/09/17 10/09/17 06:00 18:00 06:00 18:00 06:00 18:00 Intake Total 2540 ml 1622 ml Output Total 1350 ml 1225 ml Balance 1190 ml 397 ml Intake Oral 240 ml 720 ml IV Total 1000 ml 902 ml Other 1300 ml Output Urine Total 1250 ml 1225 ml Estimated Blood Loss 100 ml # Bowel Movements 0 Laboratory Tests Test 10/09/17 04:00 White Blood Count 16.8 TH/MM3 Red Blood Count 3.84 MIL/MM3 Hemoglobin 11.2 GM/DL Hematocrit 33.4 % Mean Corpuscular Volume 87.0 FL Mean Corpuscular Hemoglobin 29.2 PG Mean Corpuscular Hemoglobin Concent 33.5 % Red Cell Distribution Width 15.4 % Platelet Count 288 TH/MM3 Mean Platelet Volume 8.6 FL Blood Urea Nitrogen 23 MG/DL Creatinine 1.06 MG/DL Random Glucose 323 MG/DL Calcium Level 7.9 MG/DL Sodium Level 137 MEQ/L Potassium Level 3.5 MEQ/L Chloride Level 101 MEQ/L Carbon Dioxide Level 26.0 MEQ/L Anion Gap 10 MEQ/L Estimat Glomerular Filtration Rate 67 ML/MIN Orders Procedure Category Date Status Time Lactated Ringer's MED 10/08/17 In Process 1000 Ml Inj (Lr 1000 M 06:00 Sodium Chlorid 0.9% MED 10/08/17 In Process 500 Ml Inj (Ns 500 M 06:00 Metoprolol Tartrate MED 10/08/17 In Process (Lopressor) 06:00 Povidone Iod 5% MED 10/08/17 In Process Antisepsis Kit 06:00 Chlorhexidine 2% MED 10/08/17 In Process Cloth (Chlorhexidine 06:00 Type And Screen BBK 10/08/17 Complete 05:58 Protamine Sulfate Inj MED 10/08/17 Complete (Protamine Sulfate 06:55 Heparin Inj (Heparin MED 10/08/17 Complete Inj) 06:55 Bupivacaine Pf 0.5% MED 10/08/17 Complete Inj (Marcaine Pf 0.5 06:55 Thrombin Top [place] MED 10/08/17 Complete (Thrombin Top [place]) 06:55 Heparin-Ns/Pf Inj MED 10/08/17 Complete (Heparin-Ns/Pf Inj) 06:55 Cefazolin 2 Gm Premix MED 10/08/17 Complete (Ancef 2 Gm Premix 06:55 Protamine Sulfate Inj MED 10/08/17 Complete (Protamine Sulfate 07:06 Heparin Inj (Heparin MED 10/08/17 Complete Inj) 07:06 Urinary Catheter ROC 10/08/17 In Process Management 08:38 Nitroglycerin-D5w 50 MED 10/08/17 Complete Mg/250 Ml (Nitrogly 08:58 Acetaminophen 1000 MED 10/08/17 Complete Mg/100 Ml (Ofirmev 10 08:59 Admit To Inpatient ADMITTING 10/08/17 Transmitted Code Status CODE 10/08/17 Transmitted 09:56 Vital Signs (Adult) ROC 10/08/17 In Process 09:56 Element Winding Machine Tender / ROC 10/08/17 In Process Telemetry 09:56 Activity Oob Ad Anayeli ROC 10/09/17 In Process 08:00 Activity Bed Rest ROC 10/08/17 In Process 09:56 Notify Parameters ROC 10/08/17 In Process 09:56 Diet Heart Healthy DIET 10/08/17 Transmitted Breakfast Basic Metabolic Panel LAB 10/09/17 Complete (Bmp) 06:00 Cbc No Diff, Includes LAB 10/09/17 Complete Plts 06:00 Consult Diamond Powder Technician CONS 10/08/17 Transmitted Aspirin (Aspirin) MED 10/09/17 In Process 09:00 Famotidine (Pepcid) MED 10/08/17 In Process 21:00 Scd Bilateral/Knee ROC 10/08/17 In Process High 09:56 Docusate Sodium-Senna MED 10/08/17 In Process (Cheryl-Colace) 21:00 Magnesium Hydroxide MED 10/08/17 In Process Liq (Milk Of Magnesi 10:00 Sennosides (Senokot) MED 10/08/17 In Process 10:00 Bisacodyl Supp MED 10/08/17 In Process (Dulcolax Supp) 10:00 Lactulose Liq MED 10/08/17 In Process (Lactulose Liq) 10:00 Inpatient ADMITTING 10/08/17 Transmitted Certification Remove Urinary ROC 10/08/17 In Process Catheter 17:00 Amiodarone (Cordarone) MED 10/08/17 In Process 21:00 Atorvastatin (Lipitor) MED 10/08/17 In Process 21:00 Cholecalciferol MED 10/09/17 In Process (Vitamin D3) 09:00 Glimepiride (Amaryl) MED 10/09/17 In Process 09:00 Metoprolol Tartrate MED 10/08/17 In Process (Lopressor) 21:00 Pioglitazone (Actos) MED 10/09/17 In Process 09:00 Potassium Chloride MED 10/08/17 In Process (Kcl) 21:00 Sitagliptin (Januvia) MED 10/09/17 In Process 09:00 Triamterene-Hctz MED 10/09/17 In Process 37.5-25 Mg (Maxzide 09:00 Multivit Opth MED 10/09/17 In Process (Ocuvite) 09:00 ^ Other Nursing Orders ROC 10/08/17 In Process 10:00 (Hub Use Only)Inp Phy CONS 10/08/17 Transmitted Cons/Ref Fentanyl Inj MED 10/08/17 Complete (Fentanyl Inj) 10:28 Amlodipine (Norvasc) MED 10/09/17 In Process 09:00 Misc Nursing MED 10/08/17 In Process Information 10:03 Pill Splitter (Pill MED 10/08/17 In Process Splitter) 10:45 Apixaban (Eliquis) MED 10/09/17 In Process 09:00 Am Admit Pre Op Care [facility] 10/08/17 Complete Class [facility] Complete MIN [facility] 10[facility]08/17 Complete Post [facility]esthesia [facility]/08[facility]17 Complete Pacu [facility] 10/08/17 Complete Hourly Hydralazine Inj MED 10/08/17 Complete (Apresoline Inj) 18:30 Sodium Chlor 0.9% MED 10/08/17 In Process 1000 Ml Inj (Ns 1000 M 19:00 Attending Discharge DISCHARGE 10/09/17 Transmitted Order 08:32 Vital Signs Date Time Temp Pulse Resp B/P (MAP) Pulse Ox O2 Delivery O2 Flow Rate FiO2 10/09/17 04:00 97.7 56 20 141/78 (99) 98 143/45 (77) 10/09/17 03:30 55 10/09/17 00:00 68 10/09/17 00:00 97.7 65 20 147/67 (93) 96 148/41 (76) 3/21/18 20:00 97.5 64 20 147/68 (94) 93 156/44 (81) 10/08/17 18:45 67 10/08/17 17:45 97.6 66 16 175/47 (89) 97 145/72 (96) 10/08/17 17:45 66 10/08/17 17:00 97.6 56 14 166/72 (103) 96 10/08/17 17:00 97.7 68 16 166/72 (103) 96 10/08/17 16:00 97.6 58 14 143/67 (92) 97 10/08/17 15:00 58 14 156/71 (99) 97 Nasal Cannula 2 10/08/17 14:00 62 14 142/63 (89) 98 Nasal Cannula 2 10/08/17 13:00 58 14 141/66 (91) 97 Nasal Cannula 2 10/08/17 12:00 55 14 141/62 (88) 97 10/08/17 12:00 57 14 145/66 (92) 97 Nasal Cannula 2 10/08/17 11:15 58 14 141/64 (89) 97 Nasal Cannula 2 10/08/17 11:00 56 14 131/60 (83) 95 Nasal Cannula 2 10/08/17 10:45 55 16 136/58 (84) 97 Nasal Cannula 2 10/08/17 10:30 57 16 142/64 (90) 97 Nasal Cannula 2 10/08/17 10:15 55 16 162/52 (88) 97 Nasal Cannula 3 10/08/17 10:03 97.7 57 12 187/80 (115) 96 10/08/17 06:21 97.9 48 16 180/63 (102) 99 Discharge Condition: Good Discharge Disposition: Discharge Home Discharge Instructions: ACTIVITY Activities as tolerated NO Driving for 2W INCISION CARE Leave your incision open to air Do not apply any creams or ointments to your incision as it may loosen the surgical glue Call the office to report an increase in swelling, redness or drainage DIET You may resume a Diabetic Diet BATHING You may shower No tub baths or swimming until your incision is fully healed MEDICATIONS You may resume all home medications Any questions or concerns: Call [facility] at [facility] [phone] Lissa De Souza Oct 09, 2017 08:40
[2017-10-09] MEDS ORDERED: CHOLECALCIFEROL (VIT D3) 1000 UNIT TAB PO SCH (09:00)
[2017-10-09] MEDS ORDERED: GLIMEPIRIDE 1 MG TAB PO SCH (09:00)
[2017-10-09] MEDS ORDERED: PIOGLITAZONE HCL 30 MG TAB PO SCH (09:00)
[2017-10-09] MEDS ORDERED: TRIAMTERENE/HCTZ 37.5 MG/25 MG TAB PO SCH (09:00)
[2017-10-09] MEDS ORDERED: amLODIPine BESYLATE 5 MG TAB PO SCH (09:00)
[2017-10-09] MEDS ORDERED: ASPIRIN 325 MG TAB PO SCH (09:00)
[2017-10-09] MEDS ORDERED: APIXABAN 5 MG TABLET PO SCH (09:00)
[2017-10-09] MEDS ORDERED: MULTIVITAMIN-OPHTHALMIC 1 TAB PO SCH (09:00)
== END 2017-10-09 09:15 | disposition home or self-care (01) | DRG 38 ==
LOC: HSDI 05:31 → HCVI 18:11
PROVIDERS: ADMIT Surgery; ATTEND Surgery
PROC: 03CL0ZZ Extirpation of Matter from Left Internal Carotid Artery, Open Approach (ICD-10-PCS; principal; 2017-10-08 07:34)
DX: I65.23 Occlusion and stenosis of bilateral carotid arteries (principal); J98.11 Atelectasis; I69.354 Hemiplegia and hemiparesis following cerebral infarction affecting left non-dominant side; E11.9 Type 2 diabetes mellitus without complications; J95.89 Other postprocedural complications and disorders of respiratory system, not elsewhere classified; I10 Essential (primary) hypertension; E78.5 Hyperlipidemia, unspecified; I25.10 Atherosclerotic heart disease of native coronary artery without angina pectoris; Z87.891 Personal history of nicotine dependence; I69.392 Facial weakness following cerebral infarction
CPT/HCPCS: 80048; 85027; 86850; 86900; 86901; C1768; J0131; J0360; J0690; J1100; J1644; J2370; J2405; J2710; J2720; J3010; J7030; J7040; J7120